=== PATIENT | male | born 1990 | race Asian ===

== ENCOUNTER → 2016-08-18 | Outpatient (CLI) | payer BC ==
--- NOTE | 2016-08-18 16:03 | DIAGNOSTIC IMAGING REPORT ---
RENAL ULTRASOUND HISTORY: N50.819 JzhodwxzuT55.0 Urinary sypycgknaY52.440 History of UTIR3 COMPARISON: None. FINDINGS: Right kidney: 11.1 cm. No hydronephrosis. Normal corticomedullary differentiation and cortical thickness. A few echogenic foci do not shadow and therefore likely represent renal sinus fat rather than stones. Left kidney: 10.7 cm. No hydronephrosis. Normal corticomedullary differentiation and cortical thickness. A few echogenic foci do not shadow and therefore likely represent renal sinus fat rather than stones. Bladder: No bladder wall thickening. The bilateral ureteral jets were identified. IMPRESSION: Normal renal ultrasound. Electronically signed by: Anurag Gaines M.D. 08/18/2016 4:02 PM Dictated Date/Time: 08/18/2016 3:55 PM
== END | disposition home or self-care (01) ==
LOC: C.ULTR 14:58
PROVIDERS: ATTEND Urology
DX: N50.819 Testicular pain, unspecified (principal); R35.0 Frequency of micturition; R30.0 Dysuria; Z87.440 Personal history of urinary (tract) infections